=== PATIENT | female | born 1985 | race Caucasian/White ===

== ENCOUNTER 2017-01-22 21:48 | Emergency (ER) | payer OTHER, MEDICAID ==
[~2017-01-22 21:48] MED LIST: CIPROFLOXACIN250 M2 PO; FLO4 PO; LAC PO; NOR10T PO; PYR100 PO
[2017-01-22 22:51] LABS: BASOPHIL % 0.5 % (0-2); PLATELET COUNT 366 x10^3mcL (130-400)
[2017-01-22 23:09] LABS: CALCIUM 8.8 mg/dL (8.5-10.1); CARBON DIOXIDE 32.5 mmol/L (21-32); CHLORIDE SERUM 103 mmol/L (98-107); CREATININE SERUM 0.7 mg/dL (0.6-1.0); GFR1 > 60 mL/min; GLUCOSE SERUM 120 mg/dL (74-106); POTASSIUM SERUM 3.6 mmol/L (3.5-5.1); SODIUM SERUM 142 mmol/L (136-145)
[2017-01-22 23:13] LABS: ALBUMIN 3.5 g/dL (3.4-5.0); ALKALINE PHOSPHATASE 116 U/L (46-116); ALT/SGPT 55 U/L (14-59); AMYLASE 63 U/L (25-115); AST/SGOT 73 U/L (15-37); BILIRUBIN TOTAL 0.3 mg/dL (0.20-1.00); LIPASE 182 IU/L (73-393); TOTAL PROTEIN, SERUM 7.4 g/dL (6.4-8.2)
[2017-01-23 00:43] VITALS: BP 120/69
== END 2017-01-23 00:43 | disposition home or self-care (01) ==
LOC: ED 21:48
PROVIDERS: Emergency Medicine
DX: K80.70 Calculus of gallbladder and bile duct without cholecystitis without obstruction (principal)
CPT/HCPCS: J1885; Q0092

== ENCOUNTER 2017-01-25 13:47 | Inpatient (IN) | payer OTHER, MEDICAID ==
[~2017-01-25] VITALS: Ht 160 cm; Wt 78.0 kg
[2017-01-25 15:39] LABS: BASOPHIL % 0.8 % (0-2); PLATELET COUNT 358 x10^3mcL (130-400); RED CELL DISTRIBUTION WIDTH 13.3 % (11.5-14.5)
[2017-01-25 15:47] LABS: CALCIUM 8.5 mg/dL (8.5-10.1); CARBON DIOXIDE 28.7 mmol/L (21-32); CHLORIDE SERUM 102 mmol/L (98-107); CREATININE SERUM 0.8 mg/dL (0.6-1.0); GFR1 > 60 mL/min; GLUCOSE SERUM 94 mg/dL (74-106); POTASSIUM SERUM 3.3 mmol/L (3.5-5.1); SODIUM SERUM 137 mmol/L (136-145)
[2017-01-25 15:51] LABS: ALKALINE PHOSPHATASE 181 U/L (46-116); ALT/SGPT 489 U/L (14-59); AST/SGOT 239 U/L (15-37); BILIRUBIN TOTAL 3.7 mg/dL (0.20-1.00); LIPASE 186 IU/L (73-393)
[2017-01-25 15:56] LABS: ALBUMIN 3.3 g/dL (3.4-5.0); TOTAL PROTEIN, SERUM 7.3 g/dL (6.4-8.2)
[2017-01-25 16:10] LABS: microscopic required? YES; urine erythrocyte 3+ (NEGATIVE)
[2017-01-25 17:58] VITALS: BP 115/80
[2017-01-25 17:59] LABS: CHOLESTEROL/HDL RATIO 3.4
[2017-01-25 18:01] LABS: BILIRUBIN DIRECT 3.26 mg/dL (0.0-0.2); BILIRUBIN TOTAL 3.68 mg/dL (0.20-1.00)
[2017-01-25 18:07] LABS: T3 TOTAL 0.93 ng/mL
[2017-01-25 18:09] LABS: FREE T4 0.89 ng/dL (0.76-1.46); FREE THYROXINE INDEX 2.4 ug/dL (1.4-4.5); T4(THYROXINE) 8.1 ug/dL (4.7-13.3)
[2017-01-25 18:18] VITALS: BP 115/80
[2017-01-25 20:00] VITALS: BP 104/54
[2017-01-25 21:10] VITALS: Ht 160 cm; Wt 78.0 kg
[2017-01-25 22:03] VITALS: BP 103/60
[2017-01-26 04:10] LABS: AMPHETAMINE QUAL UR NONE DETECTED (NEG <=1000)
[2017-01-26 06:02] LABS: BASOPHIL % 0.7 % (0-2); PLATELET COUNT 332 x10^3mcL (130-400); RED CELL DISTRIBUTION WIDTH 13.3 % (11.5-14.5)
[2017-01-26 06:21] LABS: CALCIUM 7.7 mg/dL (8.5-10.1); CARBON DIOXIDE 26.5 mmol/L (21-32); CHLORIDE SERUM 105 mmol/L (98-107); CREATININE SERUM 0.6 mg/dL (0.6-1.0); GFR1 > 60 mL/min; GLUCOSE SERUM 98 mg/dL (74-106); MAGNESIUM 1.7 mg/dL (1.8-2.4); PHOSPHOROUS 2.5 mg/dL (2.5-4.9); POTASSIUM SERUM 3.8 mmol/L (3.5-5.1); SODIUM SERUM 139 mmol/L (136-145)
[2017-01-26 06:48] VITALS: BP 108/64
[2017-01-26 07:45] VITALS: BP 114/82
[2017-01-26 09:01] LABS: BILIRUBIN DIRECT 3.23 mg/dL (0.0-0.2); BILIRUBIN TOTAL 4.1 mg/dL (0.20-1.00); TOTAL PROTEIN, SERUM 6.6 g/dL (6.4-8.2)
[2017-01-26 13:52] VITALS: BP 101/69
[2017-01-26 17:55] VITALS: BP 115/78
[2017-01-26 20:00] VITALS: BP 102/53
[2017-01-26 21:26] VITALS: BP 107/72
[2017-01-27 06:07] LABS: BASOPHIL % 0.6 % (0-2); PLATELET COUNT 358 x10^3mcL (130-400); RED CELL DISTRIBUTION WIDTH 13.5 % (11.5-14.5)
[2017-01-27 06:24] LABS: CARBON DIOXIDE 30.1 mmol/L (21-32); CHLORIDE SERUM 105 mmol/L (98-107); CREATININE SERUM 0.6 mg/dL (0.6-1.0); GFR1 > 60 mL/min; GLUCOSE SERUM 86 mg/dL (74-106); MAGNESIUM 2.1 mg/dL (1.8-2.4); PHOSPHOROUS 2.5 mg/dL (2.5-4.9); POTASSIUM SERUM 3.7 mmol/L (3.5-5.1); SODIUM SERUM 139 mmol/L (136-145)
[2017-01-27 06:32] VITALS: BP 111/76
[2017-01-27 08:54] LABS: BILIRUBIN DIRECT 0.67 mg/dL (0.0-0.2); BILIRUBIN TOTAL 1.2 mg/dL (0.20-1.00); TOTAL PROTEIN, SERUM 6.6 g/dL (6.4-8.2)
[2017-01-27 09:02] VITALS: BP 101/62
[2017-01-27 09:05] LABS: ALBUMIN 3.1 g/dL (3.4-5.0)
[2017-01-27 17:51] VITALS: BP 122/72
[2017-01-27 21:32] VITALS: BP 95/56
[2017-01-28 05:48] VITALS: BP 100/65
[2017-01-28 06:17] LABS: CARBON DIOXIDE 28.6 mmol/L (21-32); CHLORIDE SERUM 105 mmol/L (98-107); CREATININE SERUM 0.6 mg/dL (0.6-1.0); GFR1 > 60 mL/min; GLUCOSE SERUM 88 mg/dL (74-106); POTASSIUM SERUM 3.7 mmol/L (3.5-5.1); SODIUM SERUM 139 mmol/L (136-145)
[2017-01-28 06:31] LABS: PLATELET COUNT 360 x10^3mcL (130-400); RED CELL DISTRIBUTION WIDTH 12.4 % (11.5-14.5)
[2017-01-28 09:20] VITALS: BP 117/72
[2017-01-28] MEDS ORDERED: LAC PO (12:14)
[2017-01-28] MEDS ORDERED: CIPRO250 MG PO (12:14)
[2017-01-28] MEDS ORDERED: APAP/HYDROCODON1 T13 PO (12:15)
[2017-01-28] MEDS ORDERED: FLO4 PO (12:15)
[2017-01-28] MEDS ORDERED: COL100 PO (12:15)
[2017-01-28] MEDS ORDERED: ZOF4 PO (12:16)
[2017-01-28 13:19] VITALS: BP 117/72
== END 2017-01-28 14:54 | disposition home or self-care (01) | DRG 444 ==
LOC: ED 13:47 → MU 16:06
PROVIDERS: Emergency Medicine; Internal Medicine Gastroenterology; ADMIT Family Medicine
PROC: 0F798ZZ Dilation of Common Bile Duct, Via Natural or Artificial Opening Endoscopic (ICD-10-PCS; principal; 2017-01-26 09:00)
PROC: BF131ZZ Fluoroscopy of Gallbladder and Bile Ducts using Low Osmolar Contrast (ICD-10-PCS; 2017-01-26 09:00)
DX: K80.50 Calculus of bile duct without cholangitis or cholecystitis without obstruction (principal); N17.0 Acute kidney failure with tubular necrosis; N39.0 Urinary tract infection, site not specified; E44.0 Moderate protein-calorie malnutrition; R80.8 Other proteinuria; E87.6 Hypokalemia; R31.9 Hematuria, unspecified; E83.42 Hypomagnesemia; R74.0 Nonspecific elevation of levels of transaminase and lactic acid dehydrogenase [LDH]; Z79.1 Long term (current) use of non-steroidal anti-inflammatories (NSAID); Z68.30 Body mass index [BMI] 30.0-30.9, adult
CPT/HCPCS: 43262; 80307; 83880; 84439; C1769; J0295; J1610; J1885; J2250; J2405; J2543; J2704; J3010; J3475; J3490; J7030; J7120; Q0092; Q9967

== ENCOUNTER 2017-06-04 10:44 | Emergency (ER) | payer OTHER, MEDICAID ==
[~2017-06-04 10:44] MED LIST changes: +APAP/HYDROCODON1 T13 PO; +CIPRO250 MG PO; +COL100 PO; +ZOF4 PO
[2017-06-04 16:15] VITALS: BP 122/64
[2017-06-04 16:45] LABS: microscopic required? YES; urine erythrocyte 2+ (NEGATIVE)
== END 2017-06-04 16:15 | disposition home or self-care (01) ==
LOC: ED 10:44
PROVIDERS: Emergency Medicine Emergency Medical Services
DX: N39.0 Urinary tract infection, site not specified (principal)

== ENCOUNTER 2017-07-24 19:49 | Emergency (ER) | payer OTHER, MEDICAID ==
[2017-07-25 00:01] VITALS: BP 106/68
== END 2017-07-25 00:02 | disposition home or self-care (01) ==
LOC: ED 19:49
DX: T83.84XA Pain due to genitourinary prosthetic devices, implants and grafts, initial encounter (principal); R03.0 Elevated blood-pressure reading, without diagnosis of hypertension
CPT/HCPCS: J1885

== ENCOUNTER 2017-09-17 11:54 | Emergency (ER) | payer OTHER, MEDICAID ==
[2017-09-17 13:26] LABS: BASOPHIL % 0.7 % (0-2); PLATELET COUNT 326 x10^3mcL (130-400); RED CELL DISTRIBUTION WIDTH 13.7 % (11.5-14.5)
[2017-09-17 13:30] LABS: ALBUMIN 3.5 g/dL (3.4-5.0); ALKALINE PHOSPHATASE 89 U/L (46-116); ALT/SGPT 73 U/L (14-59); AST/SGOT 41 U/L (15-37); BILIRUBIN TOTAL 0.3 mg/dL (0.20-1.00); CALCIUM 8.7 mg/dL (8.5-10.1); CARBON DIOXIDE 34.9 mmol/L (21-32); CHLORIDE SERUM 102 mmol/L (98-107); CREATININE SERUM 0.7 mg/dL (0.6-1.0); GFR1 > 60 mL/min; GLUCOSE SERUM 123 mg/dL (74-106); HDL CHOLESTEROL 41 mg/dL (40-60); LIPASE 194 IU/L (73-393); SODIUM SERUM 141 mmol/L (136-145); TOTAL PROTEIN, SERUM 7.1 g/dL (6.4-8.2); TRIGLYCERIDES 134 mg/dL (<150)
[2017-09-17 13:35] LABS: CHOLESTEROL 116 mg/dL (<200); CHOLESTEROL/HDL RATIO 2.8; POTASSIUM SERUM 2.8 mmol/L (3.5-5.1)
[2017-09-17 13:40] LABS: T3 TOTAL 1.17 ng/mL
[2017-09-17 13:42] LABS: FREE T4 0.91 ng/dL (0.76-1.46); FREE THYROXINE INDEX 2.9 ug/dL (1.4-4.5); T4(THYROXINE) 8.5 ug/dL (4.7-13.3)
[2017-09-17 14:17] VITALS: BP 117/71
== END 2017-09-17 14:18 | disposition home or self-care (01) ==
LOC: ED 11:54
PROVIDERS: Specialist
DX: F43.0 Acute stress reaction (principal); E87.6 Hypokalemia
CPT/HCPCS: 36415; 83880; 84439; Q0092

== ENCOUNTER 2019-06-09 15:43 | Emergency (ER) | payer MEDICAID ==
[~2019-06-09] VITALS: Ht 149.9 cm; Wt 69.4 kg
[2019-06-09 16:03] VITALS: Ht 149.9 cm; Wt 69.4 kg
[2019-06-09 21:21] VITALS: BP 108/70
== END 2019-06-09 21:21 | disposition home or self-care (01) ==
LOC: ED 15:43
DX: S16.1XXA Strain of muscle, fascia and tendon at neck level, initial encounter (principal); S46.911A Strain of unspecified muscle, fascia and tendon at shoulder and upper arm level, right arm, initial encounter; M54.5 Low back pain; V48.5XXA Car driver injured in noncollision transport accident in traffic accident, initial encounter; Y93.I9 Activity, other involving external motion; Y92.411 Interstate highway as the place of occurrence of the external cause; Y99.8 Other external cause status

== ENCOUNTER 2020-12-27 07:50 | Emergency (ER) | payer MEDICAID ==
[~2020-12-27] VITALS: Ht 157.5 cm; Wt 72.6 kg
[2020-12-27 08:01] VITALS: Ht 157.5 cm; Wt 72.6 kg
[2020-12-27 08:48] LABS: microscopic required? NO
[2020-12-27 08:53] LABS: PLATELET COUNT 347 x10^3mcL (179-408); RED CELL DISTRIBUTION WIDTH 12.9 % (12.3-17.7)
[2020-12-27 09:07] LABS: CALCIUM 8.6 mg/dL (8.5-10.1); CARBON DIOXIDE 24.3 mmol/L (21-32); CHLORIDE SERUM 102 mmol/L (98-107); CREATININE SERUM 0.8 mg/dL (0.6-1.0); GFR1 > 60 mL/min; GLUCOSE SERUM 91 mg/dL (74-106); SODIUM SERUM 135 mmol/L (136-145)
[2020-12-27 09:11] LABS: ALKALINE PHOSPHATASE 107 U/L (46-116); ALT/SGPT 37 U/L (14-59); AST/SGOT 23 U/L (15-37); BILIRUBIN TOTAL 0.3 mg/dL (0.20-1.00); TOTAL PROTEIN, SERUM 6.9 g/dL (6.4-8.2)
[2020-12-27 10:21] LABS: ALBUMIN 3.2 g/dL (3.4-5.0)
[2020-12-27 10:25] LABS: urine erythrocyte NEGATIVE (NEGATIVE)
[2020-12-27 11:40] LABS: BAND NEUTROPHIL 0 % (0-10); BASOPHIL 0 % (0-2); MONOCYTE 7 % (0-7); SEGMENTED NEUTROPHILS 66 % (37-75); rbc morphology (normal/abnorm) ABNORMAL (NORMAL)
[2020-12-27 13:05] VITALS: BP 130/84
== END 2020-12-27 13:05 | disposition home or self-care (01) ==
LOC: ED 07:50
PROVIDERS: Emergency Medicine
DX: N13.2 Hydronephrosis with renal and ureteral calculous obstruction (principal)
CPT/HCPCS: J1885; J2270; J2405; J7030; Q9967